=== PATIENT | female | born 1970 | race Caucasian/White ===

== ENCOUNTER → 2016-11-05 | Outpatient (CLI) | payer BC ==
[2016-11-05 16:40] LABS: HEMOGLOBIN 13.3 gm/dl (12.3-15.3); RED BLOOD COUNT 4.5 M/UL (4.00-5.10)
[2016-11-05 17:07] LABS: BUN/CREATININE RATIO 23 (0-10)
== END ==
LOC: LAB 16:04
PROVIDERS: Emergency Medicine
DX: R07.89 Other chest pain (principal); R06.02 Shortness of breath; R53.83 Other fatigue; Z88.5 Allergy status to narcotic agent
CPT/HCPCS: 71020; 80053; 82550; 82607; 83880; 84439; 84443; 84484; 85027; 85379

== ENCOUNTER → 2016-11-06 | Outpatient (CLI) | payer BC | LOC: LAB 11:40 | DX: R07.89 Other chest pain (principal); R06.02 Shortness of breath; R53.83 Other fatigue | CPT/HCPCS: 36415; 80061; 83704 ==

== ENCOUNTER → 2020-06-05 | Outpatient (CLI) | payer OTHER ==
[~2020-06-05] MED LIST: ASPIRIN CHEWABL81 MG PO; DECADRON6 MG PO; DOXYCYCLINE MO100 MG PO; VENTOLIN HFA 66.7 GM INH
== END ==
LOC: EROP 18:14
DX: U07.1 COVID-19 (principal)
CPT/HCPCS: 87635

== ENCOUNTER 2020-06-13 20:56 | Emergency (ER) | payer BC ==
[2020-06-14 00:37] LABS: HEMOGLOBIN 14.9 gm/dl (12.3-15.3); RED BLOOD COUNT 5.04 M/UL (4.00-5.10); WHITE BLOOD COUNT 6.3 K/UL (4.5-11.0)
[2020-06-14 00:45] LABS: BUN/CREATININE RATIO 14 (0-10)
[2020-06-14] MEDS ORDERED: DOXYCYCLINE MO100 MG PO (01:36)
[2020-06-14] MEDS ORDERED: DECADRON6 MG PO (01:36)
[2020-06-14] MEDS ORDERED: VENTOLIN HFA 66.7 GM INH (01:36)
[2020-06-14] MEDS ORDERED: ASPIRIN CHEWABL81 MG PO (01:36)
== END 2020-06-14 01:55 | disposition home or self-care (01) ==
LOC: ER1 20:56
PROVIDERS: Family Medicine
DX: U07.1 COVID-19 (principal); J12.82 Pneumonia due to coronavirus disease 2019; E87.6 Hypokalemia; Z88.5 Allergy status to narcotic agent
CPT/HCPCS: 71045; 80053; 82550; 82553; 83605; 83615; 84484; 85025; 85610; 86140; 87040; 93005; 96372; 99285; J1100

== ENCOUNTER → 2020-07-04 | Outpatient (CLI) | payer BC | LOC: KOH-I 09:57 | DX: J18.9 Pneumonia, unspecified organism (principal); R94.5 Abnormal results of liver function studies; Z90.49 Acquired absence of other specified parts of digestive tract | CPT/HCPCS: 71046; 76705 ==

== ENCOUNTER → 2020-07-13 | Outpatient (CLI) | payer BC ==
[2020-07-13 12:33] LABS: HEMOGLOBIN 13.9 gm/dl (12.3-15.3); RED BLOOD COUNT 4.62 M/UL (4.00-5.10)
[2020-07-13 14:48] LABS: BUN/CREATININE RATIO 12 (0-10)
[2020-07-14 11:13] LABS: HBSAG SCREEN Negative (Negative); HEP A AB, IGM Negative (Negative); HEP B CORE AB, IGM Negative (Negative); HEP C VIRUS AB <0.1 (0.0-0.9)
== END ==
LOC: LAB 12:03
PROVIDERS: Nurse Practitioner Family
DX: J18.9 Pneumonia, unspecified organism (principal); M54.5 Low back pain; R05 Cough; R10.11 Right upper quadrant pain; R94.5 Abnormal results of liver function studies
CPT/HCPCS: 36415; 80053; 80061; 80074; 82728; 83540; 83550; 84443; 85025; 86038